=== PATIENT | female | born 2000 | race Caucasian/White ===

== ENCOUNTER → 2020-08-23 14:43 | Outpatient (CLI) | payer OTHER, SELFPAY ==
[2020-08-24 08:44] LABS: SARS-COV-2 TOTAL ABS Nonreactive (Nonreactive)
== END ==
LOC: LAB 14:48
PROVIDERS: PCP Nurse Practitioner Primary Care; Referring Provider Nurse Practitioner Primary Care; Visit Provider Nurse Practitioner Primary Care
DX: T69.1XXA Chilblains, initial encounter (principal)
CPT/HCPCS: 36415; 86769